=== PATIENT | female | born 1940 | race Two or more races ===

== ENCOUNTER 2025-01-25 23:59 | Inpatient (IN) | payer OTHER ==
[~2025-01-25] VITALS: Ht 149.9 cm; Wt 61.2 kg
[2025-01-26] MEDS ORDERED: ALDACTONE25 MG (00:45)
[2025-01-26] MEDS ORDERED: GRALISE600 MG (00:45)
[2025-01-26] MEDS ORDERED: TOPROL XL25 M1 (00:45)
[2025-01-26] MEDS ORDERED: BUMETANIDE1 MG (00:45)
[2025-01-26] MEDS ORDERED: PLAVIX75 MG (00:46)
[2025-01-26] MEDS ORDERED: ACETAMINOPHEN 500 MG GEL..CAP PO STA (01:17)
[2025-01-26] MEDS ORDERED: NITROGLYCERIN IN 5 % DEXTROSE 50 MG/250 ML BOTTLE IV ONE (01:22)
[2025-01-26] MEDS ORDERED: ACETAMINOPHEN 500 MG GEL..CAP PO ONE ×2 (01:22→11:21)
[2025-01-26] MEDS ORDERED: NITROGLYCERIN 250 ML IV SCH (01:30)
[2025-01-26] MEDS ORDERED: 0.9 % SODIUM CHLORIDE 1,000 ML IV ONE (01:30)
[2025-01-26 01:39] LABS: BASO % 0.6 % (0.1-1.2); EOS # 0.19 (0.04-0.54); EOS % 2.4 % (0.7-7.0); LYMPH # 1.14 (1.18-3.74); LYMPH % 14.3 % (19.3-53.1); MEAN PLATELET VOLUME 10.60 fl (9.4-12.4); MONO # 0.71 (0.24-0.82); MONO % 8.9 % (4.7-12.5); NEUT # 5.84 (1.56-6.13); NEUT % 73.5 % (34.0-71.1); RED CELL DISTRIBUTION WIDTH 13.9 % (11.6-14.4)
[2025-01-26 01:59] LABS: INR 1.05
[2025-01-26 02:04] LABS: ALT/SGPT 36.0 U/L (12-78); AST/SGOT 27.0 U/L (15-37); BILIRUBIN TOTAL 0.39 mg/dL (0.3-1.2); BUN CREA RATIO 18.0 (7.0-25.0); CREATININE SERUM 1.19 mg/dL (0.55-1.02); GFR 43.32; GLOBULINA 3.2 G/DL (2.4-3.5); GLUCOSE FASTING 125.0 mg/dL (65-100); OSMOLALITY SERUM 284.0 MOSM/KG (275-295)
[2025-01-26 04:24] LABS: URINE APPEARANCE Clear; URINE BILIRRUBIN Negative (NEGATIVE); URINE BLOOD Negative; URINE COLOR Yellow; URINE GLUCOSE Negative (NEGATIVE); URINE KETONE Negative (NEGATIVE); URINE LEUKOCYTE Negative; URINE NITRATE Negative; URINE PROTEIN Negative (NEGATIVE); URINE UROBILINOGEN 0.2 E.U./dl
[2025-01-26 04:29] LABS: URINE EPITHELIAL CELLS 3.0 uL (0.0-38.8); URINE RBC 11.5 uL (0.0-20.8); URINE WBC 8.3 uL (0.0-23.2)
[2025-01-26 04:31] LABS: URINE BACTERIA 3.5 uL (0.0-1933); URINE CAST 0.00 uL (0.0-1.40)
[2025-01-26 08:04] VITALS: BP 118/55
[2025-01-26] MEDS ORDERED: CLOPIDOGREL BISULFATE 75 MG TABLET PO SCH (13:55)
[2025-01-26] MEDS ORDERED: ENOXAPARIN SODIUM 60 MG/0.6 ML SYRINGE SUBCUTANEO SCH (13:57)
[2025-01-26] MEDS ORDERED: ATORVASTATIN CALCIUM 40 MG TABLET PO SCH (13:58)
[2025-01-26] MEDS ORDERED: PANTOPRAZOLE SODIUM 40 MG in 0.9 % SODIUM CHLORIDE 8 ML IV PUSH SCH (13:59)
[2025-01-26] MEDS ORDERED: METOPROLOL TARTRATE 25 MG TABLET PO PRN (14:00)
[2025-01-26] MEDS ORDERED: CLOPIDOGREL BISULFATE 75 MG TABLET PO ONE (14:14)
[2025-01-26] MEDS ORDERED: ENOXAPARIN SODIUM 60 MG/0.6 ML SYRINGE SUBCUTANEO ONE (14:14)
[2025-01-26] MEDS ORDERED: 0.9 % SODIUM CHLORIDE 1,000 ML IV SCH (14:15)
[2025-01-26] MEDS ORDERED: MONTELUKAST SODIUM 10 MG TABLET PO SCH (14:37)
[2025-01-26 15:30] VITALS: BP 129/60; O2SAT 97
[2025-01-26 17:28] VITALS: BP 115/60
[2025-01-26 22:07] VITALS: O2SAT 96
[2025-01-27] VITALS (8 sets, daily range): BP systolic 102–188; BP diastolic 60–76; O2SAT 90–98
[2025-01-27] MEDS ORDERED: IRBESARTAN 75 MG TABLET PO SCH (09:00)
[2025-01-27] MEDS ORDERED: NITROGLYCERIN IN 5 % DEXTROSE 250 ML IV SCH (10:15)
[2025-01-27] MEDS ORDERED: GABAPENTIN 100 MG CAPSULE PO STA (14:19)
[2025-01-27] MEDS ORDERED: SPIRONOLACTONE 25 MG TABLET PO NR (14:30)
[2025-01-27] MEDS ORDERED: LOSARTAN POTASSIUM 25 MG TABLET PO SCH (17:00)
[2025-01-27] MEDS ORDERED: METOPROLOL SUCCINATE 25 MG TAB.SR.24H PO SCH (21:00)
[2025-01-28] VITALS (7 sets, daily range): BP systolic 171–179; BP diastolic 77; O2SAT 88–97
[2025-01-28] MEDS ORDERED: GABAPENTIN 100 MG CAPSULE PO SCH (01:00)
[2025-01-28] MEDS ORDERED: BUMETANIDE 1 MG TABLET PO SCH (09:00)
[2025-01-28] MEDS ORDERED: SPIRONOLACTONE 25 MG TABLET PO SCH (09:00)
[2025-01-28] MEDS ORDERED: ACETAMINOPHEN 500 MG GEL..CAP PO PRN (13:30)
[2025-01-28] MEDS ORDERED: LOSARTAN POTASSIUM 50 MG TABLET PO SCH (17:00)
[2025-01-29 03:29] VITALS: BP 146/70; O2SAT 96
[2025-01-29 05:38] VITALS: O2SAT 90
[2025-01-29 08:20] VITALS: BP 168/88
[2025-01-29] MEDS ORDERED: NIFEDIPINE 30 MG TAB.SA.OSM PO SCH (09:00)
[2025-01-29] MEDS ORDERED: ENOXAPARIN SODIUM 40 MG/0.4 ML SYRINGE SUBCUTANEO SCH (09:00)
[2025-01-29 10:06] VITALS: O2SAT 96
[2025-01-29 16:01] VITALS: BP 149/74; O2SAT 95
== END 2025-01-29 21:03 | disposition home or self-care (01) | DRG 305 ==
LOC: ER 23:59 → SEC-K 01-26 13:53 → MEDI 01-26 15:13
PROVIDERS: General Practice; ADMIT Internal Medicine; ATTEND Internal Medicine
PROC: B246ZZZ Ultrasonography of Right and Left Heart (ICD-10-PCS; 2025-01-26)
PROC: 4A12X4Z Monitoring of Cardiac Electrical Activity, External Approach (ICD-10-PCS; principal; 2025-01-27)
DX: I11.9 Hypertensive heart disease without heart failure (principal); I20.0 Unstable angina; I24.9 Acute ischemic heart disease, unspecified; E78.5 Hyperlipidemia, unspecified; I27.20 Pulmonary hypertension, unspecified; Z88.6 Allergy status to analgesic agent